=== PATIENT | male | born 1975 | race Caucasian/White ===

== ENCOUNTER 2016-11-06 17:24 | Emergency (ER) | payer OTHER ==
[~2016-11-06] VITALS: Ht 182.9 cm; Wt 113.4 kg
[~2016-11-06 17:24] MED LIST: CEFD300C PO; DOXY100C2 PO; ESCT10T PO; HYDR-700 PO; HYDR1TAB PO; KETO-22 PO; LISI1TAB PO; LISI1TAB6 PO; METO200T2 PO; NAPR-243 PO; NEBI20TA2 PO; TRAM50TA2 PO
--- OUTSIDE RECORDS SUMMARY | 2016-11-06 17:31 | XMS REPORT | Continuity of Care Document ---
Author Author [facility] Organization [facility] Address Unknown Phone Unavailable Allergies Active Description Code Type Severity Reaction Onset Reported/Identified Relationship to Patient Clinical Status Yes No Known Drug Allergies [id number] Drug Allergy Unknown N/ A 02/22/2008 Medications Problems Date Dx Coded Attending Type Code Diagnosis Diagnosed By 07/29/2012 Ot 214.9 07/29/2012 Ot 401.9 07/29/2012 Ot 530.81 07/29/2012 Ot 706.2 07/29/2012 Ot 780.57 11/16/2012 Ot 466.0 11/16/2012 Ot 786.2 05/24/2013 DOMI GUTIERRES DOLINE S Ot 021.9 05/24/2013 DOMI GUTIERRES DOLINE S Ot 082.40 05/24/2013 DOMI GUTIERRES DOLINE S Ot 300.00 05/24/2013 LAMBERTONDRORY NDIAYE DOQUELINE S Ot 401.9 05/24/2013 LAMBERTONDDOMI NDIAYE DOLINE S Ot 486 05/24/2013 LAMBERTONDRORY NDIAYE DOQUELINE S Ot 511.9 05/24/2013 RORY GUTIERRES DOQUELINE S Ot 530.81 05/24/2013 DOMI GUTIERRES DOLINE S Ot 786.09 09/14/2014 Ot 214.0 09/14/2014 Ot 706.2 09/14/2014 Ot V72.84 09/14/2014 Ot V74.8 09/14/2014 LAMBERTONDRORY NDIAYE DOQUELINE S Ot 511.9 09/14/2014 DOMI GUTIERRES DOLINE S Ot 729.1 09/14/2014 DOMI GUTIERRES DOLINE S Ot 780.60 09/14/2014 DMOI GUTIERRES DOLINE S Ot 786.09 10/03/2014 Ot 214.0 10/03/2014 Ot 706.2 10/03/2014 Ot V72.84 10/03/2014 Ot V74.8 10/03/2014 ORENDER DO, ALLISON S Ot 511.9 10/03/2014 ORENDER DO, ALLISON S Ot 729.1 10/03/2014 ORENDER DO, ALLISON S Ot 780.60 10/03/2014 ORENDER DO, ALLISON S Ot 786.09 10/10/2014 Ot 214.0 10/10/2014 Ot 706.2 10/10/2014 Ot V72.84 10/10/2014 Ot V74.8 10/10/2014 ORENDER DO, ALLISON S Ot 511.9 10/10/2014 ORENDER DO, ALLISON S Ot 729.1 10/10/2014 ORENDER DO, ALLISON S Ot 780.60 10/10/2014 ORENDER DO, ALLISON S Ot 786.09 10/10/2014 RINA BERG, PRATEEK M Ot V72.84 10/10/2014 RINA BERG, PRATEEK M Ot 401.9 10/10/2014 RINA BERG, PRATEEK M Ot 530.10 10/10/2014 RINA BERG, PRATEEK M Ot 535.50 10/10/2014 RINA BERG, PRATEEK M Ot 553.3 10/10/2014 RINA BERG, PRATEEK M Ot 569.3 10/10/2014 RINA BERG, PRATEEK M Ot 787.91 03/23/2015 ORENDER DO, ALLISON S Ot 401.9 03/23/2015 ORENDER DO, ALLISON S Ot V70.0 04/25/2015 ORENDER DO, ALLISON S Ot 082.40 04/25/2015 ORENDER DO, ALLISON S Ot 911.4 04/25/2015 ORENDER DO, ALLISON S Ot E000.8 04/25/2015 ORENDER DO, ALLISON S Ot E906.4 Procedures Results Encounters ACCT No. Visit Date/Time Discharge Status Pt. Type Provider Facility Loc./Unit Complaint [id number] 04/17/2015 17:55:00 2014 23:59:59 [facility] Outpatient ORENDER DO, ALLISON S [facility] LAB [id number] 03/18/2015 09:37:00 2014 23:59:59 [facility] Outpatient ORENDER DO ALLISON S [facility] LAB [id number] 10/10/2014 09:10:00 2014 13:55:00 DIS Outpatient PRATEEK FLYNN MD [facility] [id number] 10/06/2014 05:51:00 2014 23:59:59 CLS Outpatient PRATEEK FLYNN MD [facility] PREOP [id number] 05/21/2013 10:20:00 2012 11:59:00 DIS Inpatient ORENDER DO ALLISON S Via [address] [id number] 05/19/2013 15:20:00 2012 23:59:59 CLS Outpatient CRISTIANER DO ALLISON S [facility] [id number] 05/11/2013 15:31:00 2012 23:59:59 CLS Outpatient [id number] 11/16/2012 20:41:00 Document Registration [id number] 07/29/2012 05:28:00 Document Registration [id number] 07/28/2012 09:55:00 Document Registration
[2016-11-06] MEDS ORDERED: LIDOCAINE 1% INJ 20 ML (XYLOCAINE) VIAL ONE (17:39)
[2016-11-06] MEDS ORDERED: MELO15TA39 PO (17:40)
[2016-11-06] MEDS ORDERED: TETANUS,DIPTH,PERTUSS P/F (BOOSTRIX) 0.5 ML VIAL IM ONE ×2 (17:42→17:45)
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
[2016-11-06 18:07] VITALS: BP 142/89
== END 2016-11-06 18:07 | disposition home or self-care (01) ==
LOC: EDUNIT# 17:24 → ER 17:26
DX: S01.81XA Laceration without foreign body of other part of head, initial encounter (principal); Z23 Encounter for immunization; W22.8XXA Striking against or struck by other objects, initial encounter; Y92.017 Garden or yard in single-family (private) house as the place of occurrence of the external cause; Y93.H9 Activity, other involving exterior property and land maintenance, building and construction; Y99.8 Other external cause status
CPT/HCPCS: 90471; 90715; 99282

== ENCOUNTER 2016-11-13 12:15 | Emergency (ER) | payer OTHER ==
[~2016-11-13] VITALS: Ht 182.9 cm; Wt 113.4 kg
[~2016-11-13 12:15] MED LIST changes: +MELO15TA39 PO
--- OUTSIDE RECORDS SUMMARY | 2016-11-13 12:19 | XMS REPORT | Continuity of Care Document ---
Author Author [facility] Organization [facility] Address Unknown Phone Unavailable Care Team Providers Care Wood Calker Name Role Phone NO, LOCAL PHYSICIAN PCP Unavailable Insurance Providers Payer Name Policy Number Subscriber Name Relationship Enter Insurance Name [id number] Keila Khan Self / Same As Patient Advance Directives Directive Response Recorded Date/Time Advance Directives No 11/06/16 5:35pm Health Care Power of Master Of Ceremonies No 11/06/16 5:35pm Organ Donor Yes 11/06/16 5:35pm Resuscitation Status Full Code 11/06/16 5:35pm Chief Complaint and Reason for Visit Chief Complaint Laceration Reason for Visit [id number] Problems Active Problems Medical Problem Onset Date Status Forehead laceration Unknown Acute Medications Current Home Medications Medication Dose Units Route Directions Days/Qty Instructions Start Date Hctz/Lisinopril (Zestoretic) 1 Each 1 Tab Oral Daily 20-12.5MG TABLET 07/28/12 Metoprolol Succinate 200 Mg 200 Mg Oral Bedtime 11/16/12 Meloxicam 15 Mg 15 Mg Oral Daily 11/06/16 Past Home Medications Medication Directions Ordered Status Hctz/Lisinopril (Zestoretic) 1 Each Tablet, 1 Each Oral Daily 07/28/12 Discontinued Nebivolol Hcl 20 Mg Tablet, 20 Mg Oral Bedtime 07/28/12 Discontinued Hydroxyzine Hcl (Atarax) 25 Mg Tablet, 1 Each Oral Three Times A Day Discontinued Acetaminophen/Hydrocodone Bitart 1 Each Tablet, 1 - 2 Each Oral Q4hr Prn 28/09 Discontinued Escitalopram Oxalate 10 Mg Tablet, 1 Each Oral Bedtime 11/16/12 Discontinued Tramadol Hcl 50 Mg Tablet, 50-100 Mg Oral Every 6 Hours as needed 11/16/12 Discontinued Doxycycline Hyclate (Vibramycin) 100 Mg Capsule, 1 Each Oral Twice A Day Discontinued Doxycycline Hyclate (Vibramycin) 100 Mg Capsule, 100 Mg Oral Twice A Day Discontinued Cefdinir 300 Mg Capsule, 300 Mg Oral Every 12 Hours 05/24/13 Discontinued Ketorolac Tromethamine 10 Mg Tablet, 10 Mg Oral Four Times Daily 05/24/13 Discontinued Social History Social History Problem Response Recorded Date/Time Alcohol Use Occasionally Uses 05/21/2013 10:30am Recreational Drug Use No 05/21/2013 10:30am Recent Foreign Travel No 05/21/2013 10:30am Recent Infectious Disease Exposure No 05/21/2013 10:30am Hospitalization with Isolation Denies 05/24/2013 12:22pm Sexually Transmitted Disease No 11/06/2016 5:35pm Smoking Status Never a Smoker 11/06/2016 5:35pm Recent Hopitalizations No 11/06/2016 5:35pm Sexually Transmitted Disease No 11/06/2016 5:35pm Hospitalization with Isolation Denies 05/24/2013 12:22pm Query Response Start Date Stop Date Smoking Status Never a Smoker Hospital Discharge Instructions No hospital discharge instructions. Plan of Care Discharge Date 11/06/16 6:07pm Disposition 01 HOME, SELF-CARE Condition at Discharge Stable Instructions/Education Provided Laceration Repair With Stitches (DC) Prescriptions See Medication Section Referrals NO,LOCAL PHYSICIAN - Primary Care Physician Additional Instructions/Education Sutures out in 7 days. All discharge instructions reviewed with patient and/or family. Voiced understanding. Functional Status No functional status results. Allergies, Adverse Reactions, Alerts No known allergies. Immunizations Name Given Type DTaP-Tetanus, Dipth, Pertuss P/F (Boostrix) 11/06/16 Administered Vital Signs Acute Vital Signs Vital Response Date/Time Temperature (Fahrenheit) 97.9 degrees F (97.6 - 99.5) 11/06/2016 5:35pm Temperature (Calculated Celsius) 36.63707 degrees C (36.4 - 37.5) 11/06/2016 5:35pm Pulse Rate (adult) 80 bpm (60 - 90) 11/06/2016 5:35pm Respiratory Rate 18 bpm (12 - 24) 11/06/2016 5:35pm O2 Sat by Pulse Oximetry 99 % (88 - 100) 11/06/2016 5:35pm Blood Pressure 142/89 mm Hg 11/06/2016 5:35pm Blood Pressure Mean 106 mm Hg 11/06/2016 5:35pm Pain Numeric Pain Scale 2 11/06/2016 5:35pm Height (Feet) 6 feet 11/06/2016 5:35pm Height (Inches) 0 inches 11/06/2016 5:35pm Height (Calculated Centimeters) 182.818943 cm 11/06/2016 5:35pm Weight (Pounds) 250 pounds 11/06/2016 5:35pm Weight (Calculated Kilograms) 113.982902 kilograms 11/06/2016 5:35pm Capillary Refill Capillary Refill Less Than 3 Seconds 11/06/2016 5:35pm Height 6 ft 0 in Weight 250 lb Body Mass Index 33.9 kg/m^2 Results No known relevant diagnostic tests, laboratory data and/or discharge summary. Procedures No known history of procedures. Encounters Encounter Location Arrival/Admit Date Discharge/Depart Date Attending Provider Registered Emergency Room [facility] 11/06/16 5:26pm RHIANNON VELAZQUEZ MD Recent Diagnosis
[2016-11-13 12:31] VITALS: BP 176/60
== END 2016-11-13 12:30 | disposition home or self-care (01) ==
LOC: EDUNIT# 12:15 → ER 12:16
DX: S01.81XD Laceration without foreign body of other part of head, subsequent encounter (principal)